=== PATIENT | female | born 1990 | race African-American/Black ===

== ENCOUNTER 2019-07-12 11:13 | Emergency (ER) | payer MEDICAID, SELFPAY ==
[2019-07-12 11:42] VITALS: BP 103/65; PULSE 72; RESP 16; TEMP 37.7; O2SAT 99
--- NOTE | 2019-07-12 12:05 | ED.URI ---
HPI - URI/Sore Throat General Chief Complaint: Upper Respiratory Infection Stated Complaint: Sore Throat/Congestion/Ear pain Time Seen by Provider: 07/12/19 11:50 Source: patient and RN notes reviewed Mode of arrival: ambulatory Limitations: no limitations History of Present Illness HPI Narrative: Patient presents today with a one-week history of nasal congestion, cough with intermittent shortness of breath. Congestion has worsened over the last 2 days. She also reports a 2-day history of sore throat and left ear pain. Patient is currently with an EDC of 07/25/2019. She has tried no medication for symptoms prior to arrival. MD elicited complaint: cough and nasal congestion Related Data Allergies Allergy/AdvReac Type Severity Reaction Status Date / Time No Known Allergies Allergy Unverified 07/09/18 12:43 Review of Systems Review of Systems: Narrative: CONSTITUTIONAL: Denies body aches, fever, chills, or sweats. EYES: Denies visual changes, redness, or discharge. ENT: Denies rhinorrhea. + Congestion, sore throat, left ear pain CARDIOVASCULAR: Denies chest pain, palpitations, or edema. RESPIRATORY: Denies dyspnea. +cough GASTROINTESTINAL: Denies abdominal pain, nausea, vomiting, or diarrhea. GENITOURINARY: Denies dysuria or hematuria. SKIN: Denies rash, itching, or wounds. MUSCULOSKELETAL: Denies back pain, joint pain, or myalgia. NEUROLOGIC: Denies headache, numbness, tingling, or weakness. PSYCH: Denies depression or anxiety. PMFSH Comments At time of signature, I have reviewed and agree with nursing past medical, surgical, social and family history unless otherwise noted. Please see nursing chart for further information. There is no relevant family history pertinent to the presenting complaint Exam Narrative: Exam Narrative: GENERAL: Mildly ill-appearing, well-nourished, and in no acute distress. HEAD: Normocephalic, atraumatic. EYES: EOMI. No redness or drainage. Conjunctivae normal. ENT: Mucous membranes pink and moist. Nares congested. No rhinorrhea. TMs normal bilaterally. Throat normal. Uvula midline. NECK: Normal AROM. Supple. No lymphadenopathy. CHEST: No respiratory distress. Clear to auscultation. HEART: Regular rate and rhythm. No murmur appreciated. Normal peripheral pulses. ABDOMEN: Soft, nontender, gravid, normal active bowel sounds. EXTREMITIES: Normal range of motion. No edema. SKIN: Warm, dry, no rash. NEURO: No focal deficits. Alert and oriented x3. Gait steady. PSYCH: Normal affect. No signs of depression or anxiety. Course Vital Signs Vital signs: Vital Signs Temperature 99.8 F H 07/12/19 11:42 Pulse Rate 72 07/12/19 11:42 Respiratory Rate 16 07/12/19 11:42 Blood Pressure 103/65 07/12/19 11:42 Pulse Oximetry 99 07/12/19 11:42 Temperature 99.8 F H 07/12/19 11:42 Pulse Rate 72 07/12/19 11:42 Respiratory Rate 16 07/12/19 11:42 Blood Pressure 103/65 07/12/19 11:42 Pulse Oximetry 99 07/12/19 11:42 Reviewed MDM - URI/Sore Throat Differential Diagnosis Differential diagnosis: Likely upper respiratory infection, influenza and other (Pneumonia, strep throat) Lab Data Attestation: I reviewed the patient's lab results. Labs: Influenza A Screen Negative Reference Range: Negative Influenza B Screen Negative Reference Range: Negative Strep Screen Presumptive Negative *(Reference Range: Negative)* Critical Care Time Critical Care Time Critical Care Time: No Discharge Plan Discharge Clinical Impression: Upper respiratory infection Qualifiers: URI type: unspecified URI Qualified Code(s): J06.9 - Acute upper respiratory infection, unspecified Patient Disposition: Home, Self-Care Condition: Stable Instructions: Antibiotic Form, Upper Respiratory Infection (DC) Additional Instructions: Please take Augmentin as prescribed. Take Tylenol for fever or pain. Follow up wit
== END 2019-07-12 12:10 | disposition home or self-care (01) ==
PROVIDERS: Emergency Provider Nurse Practitioner
DX: J06.9 Acute upper respiratory infection, unspecified (principal)
CPT/HCPCS: 87081; 87804; 87880; 99213; G0463

== ENCOUNTER 2019-07-15 09:38 | Emergency (ER) | payer MEDICAID, SELFPAY ==
--- NOTE | ~2019-07-15 | XR_ITS ---
EXAMINATION: XR chest 2V EXAM DATE: 07/15/2019 10:46 INDICATION: Shortness of breath. 38 weeks . Shielded. TECHNIQUE: Frontal and lateral projections of the chest obtained and reviewed. There is no prior nini dy for comparison. FINDINGS: The lungs are clear. There are no pleural effusions. The cardiomediastinal silhouette is within normal limits. There is no pneumothorax suspected. The bones and soft tissues are unremarkab le. IMPRESSION: Normal chest x-ray exam. Reviewed, dictated and finalized at location B. [employer] IMPRESSION: Normal chest x-ray exam.
[2019-07-15 09:48] VITALS: BP 109/71; PULSE 118; RESP 20; TEMP 36.7; O2SAT 100
--- NOTE | 2019-07-15 09:52 | ECG_ITS ---
Measurements Intervals Anderson Rate: 121 P: 44 GA: 136 QRS: 58 QRSD: 77 T: 10 QT: 305 QTc: 434 Interpretive Statements SINUS TACHYCARDIA ABNORMAL ECG Electronically Signed On 07-15-2019 9:57:30 [employer] by Sekou Guerrero D.O.
[2019-07-15 10:12] LABS: Basophils Percent Auto 0.1 % (0.2-1.2); Eosinophils Absolute Auto 0.1 K/mm3 (0-0.3); Eosinophils Percent Auto 1.1 % (0-4.4); Hematocrit 30.9 % (37.0-47.0); Hemoglobin 9.7 g/dL (12.0-15.0); Immature Granulocyte Absolute 0.04 K/mm3 (0.00-0.031); Immature Granulocyte Percent A 0.5 % (0-0.5); Lymphocytes Absolute Auto 1.94 K/mm3 (0.9-3.2); Mean Corpuscular HGB Conc 31.4 g/dl (32-36); Mean Corpuscular Hemoglobin 26.3 pg (26-34); Mean Corpuscular Volume 83.7 fl (80-100); Monocytes Absolute Auto 0.7 K/mm3 (0.1-0.6); Monocytes Percent Auto 8.9 % (2.6-8.5); Neutrophils Absolute Auto 5.3 K/mm3 (1.3-6.7); Neutrophils Percent Auto 65.4 % (45.5-73.1); Platelet Count Result 342 k/mm3 (150-375); Red Blood Count 3.69 M/mm3 (4.2-5.4); Red Cell Distribution Width 13.6 % (11.5-14.5); White Blood Count 8.1 K/mm3 (4.5-10.0)
[2019-07-15 10:22] LABS: Calcium 8.8 mg/dL (8.4-10.2); Carbon Dioxide 20 mmol/L (22-30); Chloride 105 mmol/L (98-107); Estimated Glomerular Filt Rate > 60; Glucose 79 mg/dL (65-105); Potassium 3.6 mmol/L (3.4-5.0); Sodium 136 mmol/L (137-145)
[2019-07-15 10:37] LABS: Blood Urea Nitrogen < 2 mg/dL (7-17)
--- NOTE | 2019-07-15 11:16 | ED.SOB ---
HPI - SOB/Dyspnea General Chief Complaint: Shortness of Breath/Dyspnea Stated Complaint: Diff breathing Time Seen by Provider: 07/15/19 11:11 Source: patient and RN notes reviewed Mode of arrival: ambulatory Limitations: no limitations History of Present Illness HPI Narrative: Pt is a 28 y/o female who presents to the ED with c/o SOB which began this morning. Pt reports she had sinus congestion so she went to the Urgent Care and was prescribed antibiotics. Pt reports she took a hot shower this morning to alleviate her sinus congestion, but the dyspnea began while she was in the shower. She states she tried to sit and lay down without much alleviation of her symptoms. Pt reports lightheadedness, chest pain, and wheezing due to the SOB, but denies a fever. She reports she is currently 38 weeks . Pt denies a PMHx of asthma. MD elicited complaint: shortness of breath Pertinent past history: other (none) Onset (ago): hour(s) (this morning) Context: recent illness (sinus congestion) Timing: improved Severity: mild Exacerbating factors: nothing Relieving factors: nothing (tried to sit and lay down without alleviation of her symptoms) Known history of: other (none) Associated symptoms: chest pain, wheezing and lightheadedness Related Data Allergies Allergy/AdvReac Type Severity Reaction Status Date / Time No Known Allergies Allergy Unverified 07/09/18 12:43 Review of Systems Review of Systems: All systems reviewed & are unremarkable except as noted in HPI and below Constitutional: Constitutional: Denies fever(s) Cardiovascular: Cardiovascular: Reports chest pain Respiratory: Respiratory: Reports dyspnea and Reports wheezing Neurologic: Reports other (lightheadedness) PMFSH Past Medical History Medical History (Updated 07/15/19 @ 12:58 by Justin Chilel MD) Anxiety Depression Surgical History Surgical History (Updated 07/15/19 @ 11:19 by Shannon Ibarra) Hx of tonsillectomy Social History Social History (Updated 07/15/19 @ 11:19 by Shannon Ibarra) Smoking status: Never smoker Exam Narrative: Exam Narrative: Const: Healthy appearing, no acute distress, well nourished. HENMT: Lip normal, nasal mucosal edema. Moist mucous membranes. Eyes: Conjunctive normal, PERRL. Resp: Normal respiratory effect, clear to auscultation bilaterally. Cardio: Regular rate, regular rhythm, no murmurs. GI: Soft, nontender, normal bowel sounds. Back/Spine/Pelvis: Full ROM Skin: Normal color, dry skin, warm Neuro: Oriented x3, alert, normal speech. Extremities: Full ROM Psych: Mental status grossly normal, normal affect Course Vital Signs Vital signs: Vital Signs Temperature 36.7 C 07/15/19 09:48 Pulse Rate 118 H 07/15/19 09:48 Respiratory Rate 20 07/15/19 09:48 Blood Pressure 109/71 07/15/19 09:48 Pulse Oximetry 100 07/15/19 09:48 Temperature 36.6 C 07/15/19 11:36 Pulse Rate 102 H 07/15/19 13:13 Respiratory Rate 18 07/15/19 13:13 Blood Pressure 110/82 07/15/19 13:13 Pulse Oximetry 100 07/15/19 13:13 MDM - SOB/Dyspnea MDM Narrative Medical decision making narrative: Her symptoms are most consistent with URI. No wheezing on exam. Nebulizer treatment did reportedly improve symptoms. I will provide her with an inhaler for symptomatic relief. Medical Records Attestation: I reviewed the patient's medical records. Lab Data Attestation: I reviewed the patient's lab results. Result diagrams: 07/15/19 10:00 07/15/19 10:00 Labs: Lab Results 07/15/19 07/15/19 Range/Units 10:00 10:00 WBC 8.1 (4.5-10.0) K/mm3 RBC 3.69 L (4.2-5.4) M/mm3 Hgb 9.7 L (12.0-15.0) g/dL Hct 30.9 L (37.0-47.0) % MCV 83.7 (80-100) fl MCH 26.3 (26-34) pg MCHC 31.4 L (32-36) g/dl RDW 13.6 (11.5-14.5) % Plt Count 342 (150-375) k/mm3 MPV 10.0 (7.4-10.4) fl Immature Gran % (Auto) 0.5 (0-0.5) % Neut % (Auto) 65.4 (45.5-73.1) %
[2019-07-15 11:29] VITALS: PULSE 88; RESP 18
[2019-07-15] MEDS: ALBUTEROL SULFATE NEB 2.5 MG/0.5 ML INH 5 MG INHALATION (11:29)
[2019-07-15 11:34] VITALS: PULSE 92; RESP 18
[2019-07-15 11:36] VITALS: BP 91/56; PULSE 96; PULSE 97; RESP 20; TEMP 36.6; O2SAT 97
[2019-07-15 12:36] VITALS: BP 103/54; PULSE 110; RESP 16; O2SAT 100
[2019-07-15 13:13] VITALS: BP 110/82; PULSE 102; RESP 18; O2SAT 100
== END 2019-07-15 13:14 | disposition home or self-care (01) ==
PROVIDERS: Emergency Provider Emergency Medicine
DX: O26.893 Other specified pregnancy related conditions, third trimester (principal); R06.02 Shortness of breath; R00.0 Tachycardia, unspecified; Z3A.38 38 weeks gestation of pregnancy
CPT/HCPCS: 36415; 71046; 80048; 85025; 93005; 94640; 99284